=== PATIENT | female | born 1965 | race Caucasian/White ===

== ENCOUNTER 2022-08-27 15:13 | Emergency (ER) | payer OTHER ==
[~2022-08-27] VITALS: Ht 167.6 cm; Wt 99.8 kg
[2022-08-27 15:44] VITALS: BP 152/73
[2022-08-27 16:33] LABS: BILIRUBIN,URINE NEGATIVE (NEGATIVE); BLOOD, URINE 2+ (NEGATIVE); COLOR,URINE YELLOW (YELLOW); LEUKOCYTE ESTERASE ,URINE 1+ (NEGATIVE); NITRITE, URINE NEGATIVE (NEGATIVE); UGLUCOSE NEGATIVE (NEGATIVE)
[2022-08-27 17:44] LABS: APPEARANCE,URINE HAZY (CLEAR)
[2022-08-27] MEDS ORDERED: CEPH-588 PO (18:40)
[2022-08-27] MEDS ORDERED: PYR100 PO (18:40)
[2022-08-27] MEDS ORDERED: IBUP-2213 PO (18:41)
--- NOTE | 2022-08-27 20:28 | NUR ---
pt left without D/C orders
== END 2022-08-27 20:28 | disposition home or self-care (01) ==
LOC: MED 15:13
DX: N39.0 Urinary tract infection, site not specified (principal); I10 Essential (primary) hypertension; Z98.890 Other specified postprocedural states; Z79.1 Long term (current) use of non-steroidal anti-inflammatories (NSAID); Z79.2 Long term (current) use of antibiotics; Z79.899 Other long term (current) drug therapy; Z88.0 Allergy status to penicillin
CPT/HCPCS: 81001; 87086; 99283